=== PATIENT | male | born 1995 | race Caucasian/White ===

== ENCOUNTER 2016-08-01 23:05 | Emergency (ER) | payer OTHER ==
[~2016-08-01] VITALS: Ht 180.3 cm; Wt 74.8 kg
[2016-08-02] MEDS ORDERED: METAL LOCK LOOP XX ONE (01:48)
[2016-08-02] MEDS ORDERED: IBUP80TA PO (07:15)
[2016-08-02] MEDS ORDERED: IBUPROFEN 800 MG TAB PO ONE (07:15)
[2016-08-02 07:29] VITALS: BP 138/80
--- NOTE | 2016-08-02 08:33 | REP ---
Clinical: Trauma. Technique: AP, lateral, bilateral oblique views of the right foot. Findings: Lateral view suggests swelling and possible small bony fragment in the superior soft tissues at the level of the base of the metatarsal bones. Correlation with point of tenderness and mechanism of injury is recommended. Remainder examination appears normal. Impression: Cannot exclude anterior soft tissue swelling and possible small fracture fragment at the level of the base of the metatarsal bones seen on lateral radiograph only. Correlation with point of tenderness and mechanism of injury recommended. Signed by Samuel Hawkins MD 08/02/2016 08:24 A
== END 2016-08-02 07:42 | disposition home or self-care (01) ==
LOC: M ED 08-02 02:09
DX: M79.671 Pain in right foot (principal); M79.89 Other specified soft tissue disorders; W20.8XXA Other cause of strike by thrown, projected or falling object, initial encounter; Y92.39 Other specified sports and athletic area as the place of occurrence of the external cause; Y93.B3 Activity, free weights; Y99.8 Other external cause status